=== PATIENT | male | born 1965 | race Caucasian/White ===

== ENCOUNTER → 2020-05-12 | Outpatient (CLI) | payer MEDICAID ==
[~2020-05-12] MED LIST: CARV12.52 PO; CARV12.543 PO; CETI10CA PO; HYDROCHLOROTH12.5 MG PO; LOSA100T14 PO
== END | disposition home or self-care (01) ==
LOC: STAR 14:21
PROVIDERS: ATTEND Orthopaedic Surgery
DX: Z20.828 Contact with and (suspected) exposure to other viral communicable diseases (principal)
CPT/HCPCS: 87635

== ENCOUNTER 2020-05-17 15:42 | Day surgery (SDC) | payer MEDICAID, OTHER ==
[~2020-05-17] VITALS: Ht 154.9 cm; Wt 118.9 kg
[2020-05-17] MEDS ORDERED: FURO-93 PO (16:34)
[2020-05-17] MEDS ORDERED: EPLE25TA4 PO (16:45)
[2020-05-17 16:48] VITALS: BP 148/88
[2020-05-17] MEDS ORDERED: CARV3.122 PO (16:52)
[2020-05-17] MEDS ORDERED: CHLORHEXIDINE 15 ML UDC MM ONE (17:00)
[2020-05-17] MEDS ORDERED: LACTATED RINGERS 1,000 ML IV SCH (17:00)
[2020-05-17 17:31] LABS: CHLORIDE 106 mmol/L (98-107)
[2020-05-17 17:38] LABS: ALANINE AMINOTRANSFERASE 45 U/L (12-78); ALBUMIN 4.1 g/dL (3.4-5.0); ALKALINE PHOSPHATASE 52 U/L (45-117); ANION GAP 4 mmol/L (5-15); BILIRUBIN,TOTAL 0.8 mg/dL (0.2-1.0); CALCIUM 9.1 mg/dL (8.5-10.1); TOTAL PROTEIN 7.4 g/dL (6.4-8.2)
[2020-05-17] MEDS ORDERED: FENTANYL PF 100 MCG/2ML ONE ×3 (17:57→19:30)
[2020-05-17] MEDS ORDERED: MIDAZOLAM 1 MG/ML, 2ML ONE (17:58)
[2020-05-17] MEDS ORDERED: DEXAMETHASONE 4 MG/ML, 1ML ONE (17:59)
[2020-05-17] MEDS ORDERED: CEFAZOLIN 1,000 MG ONE (17:59)
[2020-05-17] MEDS ORDERED: ROCURONIUM 10MG/ML,5ML ONE (17:59)
[2020-05-17] MEDS ORDERED: PROPOFOL 10 MG/ML, 20ML ONE (17:59)
[2020-05-17] MEDS ORDERED: SUCCINYLCHOLINE 20 MG/ML, 10ML ONE (17:59)
[2020-05-17] MEDS ORDERED: ONDANSETRON 2MG/ML, 2ML ONE ×2 (17:59→21:04)
[2020-05-17] MEDS: FENTANYL PF 100 MCG/2ML IV PRN ×2 (19:29→19:53)
[2020-05-17] MEDS ORDERED: OXYcodone 5 MG/5 ML ORAL.SOL UDC ONE (19:30)
[2020-05-17] MEDS ORDERED: ACETAMINOPHEN 325 MG TABLET PO PRN (19:30)
[2020-05-17] MEDS ORDERED: ONDANSETRON 2MG/ML, 2ML IVPush PRN (19:30)
[2020-05-17] MEDS ORDERED: OXYcodone 5 MG/5 ML ORAL.SOL UDC PO PRN (19:30)
[2020-05-17] MEDS ORDERED: ACETAMINOPHEN 650 MG/20.3 ML UDC ONE (19:30)
[2020-05-17] MEDS ORDERED: HYDROmorphone 1 MG/ML, 1ML INJ IVPush PRN (19:30)
[2020-05-17] MEDS ORDERED: PROMETHAZINE 25 MG/ML, 1ML IVPush PRN (19:30)
[2020-05-17] MEDS ORDERED: MEPERIDINE/PF 25MG/0.5ML IVPush PRN (19:30)
== END 2020-05-17 21:20 | disposition home or self-care (01) ==
LOC: OR 15:42
PROVIDERS: ATTEND Orthopaedic Surgery
DX: S46.212A Strain of muscle, fascia and tendon of other parts of biceps, left arm, initial encounter (principal); I11.0 Hypertensive heart disease with heart failure; I50.9 Heart failure, unspecified; E11.9 Type 2 diabetes mellitus without complications; E78.5 Hyperlipidemia, unspecified; G47.33 Obstructive sleep apnea (adult) (pediatric); E66.9 Obesity, unspecified; Z68.42 Body mass index [BMI] 45.0-49.9, adult; X58.XXXA Exposure to other specified factors, initial encounter; Y93.89 Activity, other specified; Y92.89 Other specified places as the place of occurrence of the external cause; Y99.8 Other external cause status; Z98.890 Other specified postprocedural states; Z98.52 Vasectomy status; Z79.899 Other long term (current) drug therapy; Z82.49 Family history of ischemic heart disease and other diseases of the circulatory system
CPT/HCPCS: 24340; 36415; 73070; 80053; 93005; C1713; J0330; J0690; J1100; J2250; J2405; J2704; J3010; J7120; 76000